=== PATIENT | male | born 1980 | race Caucasian/White ===

== ENCOUNTER 2020-07-18 21:40 | Emergency (ER) | payer OTHER ==
[2020-07-18] MEDS ORDERED: Ibuprofen 600 MG Tab PO ONE (22:20)
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
--- NOTE | 2020-07-18 22:42 | CR ---
Left ankle: 3 views left ankle were obtained. Comparison: No previous ankle study. Lateral malleolar fracture is noted. Soft tissue swelling is noted laterally. Ankle mortise is symmetric. No additional fracture or other bony abnormality is seen. Impression: 1. Lateral malleolar fracture with soft tissue swelling. 2. Left ankle study is otherwise unremarkable. Diagnostic code #3 Study was dictated in MDT
== END 2020-07-18 23:30 | disposition home or self-care (01) ==
LOC: MW.ED 21:40
DX: S82.62XA Displaced fracture of lateral malleolus of left fibula, initial encounter for closed fracture (principal); F17.210 Nicotine dependence, cigarettes, uncomplicated; V86.96XA Unspecified occupant of dirt bike or motor/cross bike injured in nontraffic accident, initial encounter
CPT/HCPCS: 29515; 73610; 99284; A9270; 99282

== ENCOUNTER 2023-12-08 08:19 | Emergency (ER) | payer OTHER ==
[2023-12-08] MEDS ORDERED: Ondansetron 4 MG/2 ML SDV IVPUSH ONE (09:28)
[2023-12-08] MEDS ORDERED: Sodium Chloride 0.9% 1,000 ML IV ONE (09:28)
[2023-12-08 09:54] LABS: BASOPHILS ABSOLUTE AUTO 0.04 K/uL (0.00-0.20); BASOPHILS PERCENT AUTO 0.3 % (0.0-1.0); EOSINOPHILS ABSOLUTE AUTO 0.07 K/uL (0.00-0.45); EOSINOPHILS PERCENT AUTO 0.6 % (0.0-6.0); HEMATOCRIT 49.3 % (42.0-52.0); HEMOGLOBIN 17.5 g/dL (14.0-18.0); IMMATURE GRAN ABSOLUTE AUTO 0.03 K/uL (0.00-0.05); IMMATURE GRAN PERCENT AUTO 0.2 % (0.0-0.4); LYMPHOCYTES ABSOLUTE AUTO 0.33 K/uL (1.00-4.80); LYMPHOCYTES PERCENT AUTO 2.6 % (24.0-44.0); MEAN CORPUSCULAR HEMOGLOBIN 34.5 pg (28.0-32.0); MEAN CORPUSCULAR HGB CONC 35.5 g/dL (32.0-36.0); MEAN CORPUSCULAR VOLUME 97.2 fL (83.0-99.0); MEAN PLATELET VOLUME 8.5 fL (9.4-12.4); MONOCYTES ABSOLUTE AUTO 0.35 K/uL (0.00-0.80); MONOCYTES PERCENT AUTO 2.8 % (0.0-8.0); NEUTROPHILS ABSOLUTE AUTO 11.73 K/uL (1.80-7.70); NEUTROPHILS PERCENT AUTO 93.5 % (41.0-71.0); PLATELET COUNT,PLT 304 K/uL (150-400); RED BLOOD CELL COUNT 5.07 M/uL (4.52-5.90); WHITE BLOOD CELL COUNT,WBC 12.55 K/uL (3.9-11.3)
[2023-12-08 10:30] LABS: ALBUMIN 4.1 g/dL (3.4-5.0); BILIRUBIN TOTAL 0.6 mg/dL (0.2-1.0); CALCIUM 9.3 mg/dL (8.5-10.1); CARBON DIOXIDE,CO2 20.2 mmol/L (21.0-32.0); CREATININE 1.2 mg/dL (0.8-1.3); EST CRCL DRUG DOSING (CG) 84.89 mL/min; POTASSIUM,K 3.9 mmol/L (3.5-5.1); PROTEIN TOTAL,TP 8.4 g/dL (6.4-8.2)
[2023-12-08 10:30] LABS: CORONAVIRUS COVID-19 NAA NEGATIVE (NEGATIVE); INFLUENZA A NAA NEGATIVE (NEGATIVE); INFLUENZA B NAA NEGATIVE (NEGATIVE)
[2023-12-08] MEDS ORDERED: Iopamidol 755 MG/ML 500 ML Multipack Bottle IVPUSH STA (11:14)
[2023-12-08 11:37] LABS: APPEARANCE,URINE CLEAR; BILIRUBIN,URINE NEGATIVE (NEGATIVE); COLOR,URINE YELLOW; GLUCOSE,URINE NEGATIVE (NEGATIVE); KETONES,URINE TRACE mg/dL (NEGATIVE); LEUKOCYTE ESTERASE,URINE NEGATIVE (NEGATIVE); NITRITE,URINE NEGATIVE (NEGATIVE); OCCULT BLOOD,URINE NEGATIVE (NEGATIVE); PH,URINE 5.5 (5.0-8.0); PROTEIN,URINE NEGATIVE (NEGATIVE); UROBILINOGEN,URINE 0.2 EU/dL (<2.0)
== END 2023-12-08 12:29 | disposition home or self-care (01) ==
LOC: MW.ED 08:19
DX: K52.9 Noninfective gastroenteritis and colitis, unspecified (principal)
CPT/HCPCS: 0240U; 36415; 74177; 80053; 81003; 83690; 85025; 96361; 96374; 99284; J2405; J7030; Q9967